=== PATIENT | female | born 1960 | race Hispanic/Latino ===

== ENCOUNTER 2017-04-16 15:22 | Emergency (ER) | payer SELFPAY ==
[2017-04-16 15:31] VITALS: BP 140/93
[2017-04-16] MEDS ORDERED: NORCO 7.5/325 PO ONE (16:07)
[2017-04-16] MEDS ORDERED: MOTRIN PO ONE (16:07)
--- NOTE | 2017-04-16 16:08 | Emergency Department Report ---
Blank Doc - Documentation Documentation: Patient is a 56 year old female who fell in the bathroom approximately 2 weeks ago injuring her right ribs. Patient states pain is persisted hurts when she breathes. Patient is here for evaluation. X-ray will be done
--- NOTE | 2017-04-16 16:53 | XRay Report ---
FINAL REPORT PROCEDURE: XR RIBS UNI W PA CHEST 3+V RT TECHNIQUE: RIGHT rib radiographs, 3 views of the ribs, including PA chest. HISTORY: Rib injury. COMPARISON: No prior studies are available for comparison. FINDINGS: Heart: Normal. Mediastinum/Vessels: Aortic tortuosity. Lungs: Normal. Pleural space: Normal. Pneumothorax: None. Bony thorax/ribs: There is a minimally displaced anterior right 7th rib fracture. IMPRESSION: Minimally displaced right 7th rib fracture. No pneumothorax on limited exam. Aortic tortuosity.
--- NOTE | 2017-04-16 17:07 | Emergency Department Report ---
HPI - General Chief Complaint: Pain General Time Seen by Provider: 04/16/17 15:48 ED Past Medical Hx - Past Medical History Previous Medical History?: No - Surgical History Past Surgical History?: No - Social History Smoking Status: Current Every Day Smoker Substance Use Type: Alcohol - Medications Home Medications: Home Medications Medication Instructions Recorded Confirmed Last Taken Type HYDROcodone/APAP 5-325 [Mountain 1 each PO Q6HR PRN #12 tablet 04/16/17 Unknown Rx 5/325] Ibuprofen [Motrin] 800 mg PO Q8HR PRN #30 tablet 04/16/17 Unknown Rx ED Review of Systems ROS: Stated complaint: "Broken ribs" Other details as noted in HPI Physical Exam - Physical Exam Vital Signs: Vital Signs 04/16/17 04/16/17 04/16/17 15:29 16:26 16:27 Temperature 98.1 F Pulse Rate 109 H Respiratory 16 18 18 Rate Blood Pressure 140/93 O2 Sat by Pulse 100 Oximetry ED Course Vital Signs 04/16/17 04/16/17 04/16/17 15:29 16:26 16:27 Temperature 98.1 F Pulse Rate 109 H Respiratory 16 18 18 Rate Blood Pressure 140/93 O2 Sat by Pulse 100 Oximetry ED Medical Decision Making - Radiology Data Radiology results: report reviewed, image reviewed INAL REPORT PROCEDURE: XR RIBS UNI W PA CHEST 3+V RT TECHNIQUE: RIGHT rib radiographs, 3 views of the ribs, including PA chest. HISTORY: Rib injury. COMPARISON: No prior studies are available for comparison. FINDINGS: Heart: Normal. Mediastinum/Vessels: Aortic tortuosity. Lungs: Normal. Pleural space: Normal. Pneumothorax: None. Bony thorax/ribs: There is a minimally displaced anterior right 7th rib fracture. IMPRESSION: Minimally displaced right 7th rib fracture. No pneumothorax on limited exam. Aortic tortuosity. Transcribed By: CASEY Dictated By: KEN DIALLO MD Electronically Authenticated By: KEN DIALLO MD Signed Date/Time: 04/16/17 3522 Critical care attestation.: If time is entered above; I have spent that time in minutes in the direct care of this critically ill patient, excluding procedure time. ED Disposition Clinical Impression: Right rib fracture Qualifiers: Encounter type: initial encounter Rib fracture type: single rib Fracture type: closed Qualified Code(s): S22.31XA - Fracture of one rib, right side, initial encounter for closed fracture Disposition: DC- TO HOME OR SELFCARE Is pt being admited?: No Does the pt Need Aspirin: No Condition: Stable Instructions: Rib Fracture (ED) Additional Instructions: Make sure to follow up with the orthopedics as well as her primary care physician as discussed. Take all your medications as you've been prescribed. If you have any worsening symptoms or develop new symptoms please return to ED immediately. Prescriptions: HYDROcodone/APAP 5-325 [Mountain 5/325] 1 each PO Q6HR PRN #12 tablet PRN Reason: Pain Ibuprofen [Motrin] 800 mg PO Q8HR PRN #30 tablet PRN Reason: Pain Referrals: PRIMARY CARE, [Primary Care Provider] - 3-5 Days LOKI ADAIR MD [Staff Physician] - 3-5 Days [facility] [Outside] - 3-5 Days [facility] [Outside] - 3-5 Days Forms: Accompanied Note, Work/School Release Form(ED) Time of Disposition: 17:15
== END 2017-04-16 17:49 | disposition home or self-care (01) ==
LOC: ED 15:22
DX: S22.31XA Fracture of one rib, right side, initial encounter for closed fracture (principal); F17.200 Nicotine dependence, unspecified, uncomplicated; W19.XXXA Unspecified fall, initial encounter; Y93.89 Activity, other specified; Y99.8 Other external cause status; Y92.89 Other specified places as the place of occurrence of the external cause

== ENCOUNTER 2018-04-09 15:10 | Emergency (ER) | payer SELFPAY ==
[2018-04-09] MEDS ORDERED: DECADRON IM ONE (15:26)
[2018-04-09] MEDS ORDERED: PROVENTIL IH ONE (15:26)
[2018-04-09] MEDS ORDERED: ATROVENT IH ONE (15:26)
--- NOTE | 2018-04-09 15:26 | Emergency Department Report ---
Blank Doc - Documentation Documentation: This is a 57-year-old female that presents with cough with SOB x3 days. Denies any chest pain. Denies any other complaints or symptoms. This initial assessment diagnostic orders/clinical plan/treatment(s) is/are subject to change based on patient's health status, clinical progression and re- assessment by fellow clinical providers in the ED. Further treatment and workup at subsequent clinical providers discretion. Patient/guardians urged not to elope from ED s their condition may be serious if not clinically assessed and managed. Initial orders include: 1-Patient sent to [facility] for further evaluation and treatment 2- Breathing treatment with decadron ordered 3- xray of chest
--- NOTE | 2018-04-09 16:02 | XRay Report ---
FINAL REPORT EXAM: XR CHEST ROUTINE 2V HISTORY: wheezing, sob TECHNIQUE: Frontal and lateral chest radiographs. PRIORS: 04/16/2017. FINDINGS: The cardiomediastinal silhouette is normal. No focal consolidation. Unchanged hyperinflated lungs. No pleural effusion. No pneumothorax. No acute osseous abnormality. IMPRESSION: No acute cardiopulmonary process. Unchanged hyperinflated lungs which can be seen in COPD.
--- NOTE | 2018-04-09 17:15 | Emergency Department Report ---
Minor Respiratory - HPI Chief Complaint: Dyspnea/Respdistress Stated Complaint: SHANTA Time Seen by Provider: 04/09/18 15:23 Duration: 5 Days Pain Location: Chest Severity: moderate Minor Respiratory: Yes Able to Tolerate Fluids, Yes Cough, Yes Shortness of Breath, No Rhinorrhea, No Sore Throat, No Ear Pain, No Sick Contacts, No Hemoptysis, No Chest Pain, No Fever Other History: 57 yo cauc. female with cough and congestion for days. she is a smoker. likely has undx copd. chills and yellow sputum. no fever. ambulatory in er. no cp. sob with activity. no leg swelling. ED Review of Systems ROS: Stated complaint: SHANTA Other details as noted in HPI Comment: All other systems reviewed and negative Constitutional: denies: chills, fever, malaise Eyes: denies: eye pain ENT: denies: ear pain, throat pain Respiratory: see HPI, cough, shortness of breath, wheezing. denies: orthopnea, SOB with exertion Cardiovascular: as per HPI, dyspnea on exertion. denies: chest pain, palpitations, orthopnea Endocrine: denies: excessive sweating, flushing, intolerance to cold Gastrointestinal: denies: nausea Genitourinary: denies: urgency Musculoskeletal: denies: back pain Skin: denies: rash Neurological: denies: headache Psychiatric: denies: anxiety Hematological/Lymphatic: denies: easy bleeding ED Past Medical Hx - Past Medical History Previous Medical History?: Yes Hx Psychiatric Treatment: Yes (anx/depression) - Surgical History Past Surgical History?: No - Social History Smoking Status: Current Every Day Smoker Substance Use Type: Alcohol - Medications Home Medications: Home Medications Medication Instructions Recorded Confirmed Last Taken Type Albuterol Sulfate [Ventolin HFA] 2 puff IH Q4H PRN #1 hfa.aer.ad 04/09/18 Unknown Rx Azithromycin [Zithromax Z-REGINE] 250 mg PO DAILY #6 tablet 04/09/18 Unknown Rx Benzonatate [Tessalon Perles] 100 mg PO Q8HR PRN #20 capsule 04/09/18 Unknown Rx Fluticasone [Flonase] 1 spray NS QDAY #1 bottle 04/09/18 Unknown Rx predniSONE [Deltasone] 20 mg PO DAILY #5 tablet 04/09/18 Unknown Rx Minor Respiratory Exam - Exam General: Vital signs noted. No distress. Alert and acting appropriately. HEENT: Yes Moist Mucous Membranes, No Pharyngeal Erythema, No Pharyngeal Exudates, No Rhinorrhea, No Conjuctival Injection, No Frontal Tenderness, No Maxillary Tenderness Ear: Neither TM Bulge, Neither TM Erythema, Neither EAC Pain, Neither EAC D ischarge Neck: Yes Supple, No Adenopathy Lungs: Yes Good Air Exchange, Yes Wheezes (b- improved with duoneb), Yes Cough, No Ronchi, No Stridor, No Labored Respirations, No Retractions, No Use of Accessory Muscles, No Other Abnormal Lung Sounds Heart: Yes Regular, No Murmur Abdomen: Yes Normal Bowel Sounds, No Tenderness, No Peritoneal Signs Skin: No Rash, No Edema Neurologic: Alert and oriented, no deficits. Musculoskeletal: Unremarkable. ED Course Vital Signs 04/09/18 15:24 Temperature 97.8 F Pulse Rate 112 H Respiratory 20 Rate Blood Pressure 166/91 O2 Sat by Pulse 93 Oximetry ED Medical Decision Making - Radiology Data Radiology results: report reviewed, image reviewed no pna - Medical Decision Making likely undx copd current smoker cough chills yellow sputum duoneb and decadron per triage ASHUTOSH discussed smoking and copd with pt. she will be dc home with pulmonary follow up. - Differential Diagnosis ro pna Critical care attestation.: If time is entered above; I have spent that time in minutes in the direct care of this critically ill patient, excluding procedure time. ED Disposition Clinical Impression: Bronchitis, URTI (acute upper respiratory infection) Disposition: DC-01 TO HOME OR SELFCARE Is pt being admited?: No Does the pt Need Aspirin: No Condition: Stable Instructions: Acute Bronchitis (ED), Chronic Obstructive Pulmonary Disease (ED) Additional Instructions: stop smoking meds as ordered follow up with a mental health worker to get COPD tests and ongoing lung care hydrate well with water activity as tolerated diet as tolerated Prescriptions: Albuterol Sulfate [Ventolin HFA] 2 puff IH Q4H PRN #1 hfa.aer.ad PRN Reason: Shortness Of Breath Azithromycin [Zithromax Z-REGINE] 250 mg PO DAILY #6 tablet Benzonatate [Tessalon Perles] 100 mg PO Q8HR PRN #20 capsule PRN Reason: Cough Fluticasone [Flonase] 1 spray NS QDAY #1 bottle predniSONE [Deltasone] 20 mg PO DAILY #5 tablet Referrals: MOIRA LEE MD [Staff Physician] - 3-5 Days ABY SEVILLA MD [Staff Physician] - 3-5 Days NATASHA ABREU MD [Referring] - 3-5 Days MARQUEZ PENA MD [Staff Physician] - 3-5 Days Time of Disposition: 17:14
[2018-04-09 18:34] VITALS: BP 151/76
== END 2018-04-09 17:51 | disposition home or self-care (01) ==
LOC: ED 15:10
DX: J06.9 Acute upper respiratory infection, unspecified (principal); J40 Bronchitis, not specified as acute or chronic; F32.9 Major depressive disorder, single episode, unspecified; F41.9 Anxiety disorder, unspecified; F17.200 Nicotine dependence, unspecified, uncomplicated
CPT/HCPCS: 71046; 94640; 96372; 99283; J1100

== ENCOUNTER 2021-04-14 22:45 | Emergency (ER) | payer SELFPAY ==
--- NOTE | 2021-04-14 23:15 | Emergency Department Report ---
History of Present Illness - General Chief Complaint: Overdose Stated Complaint: DRUG OD Time Seen by Provider: 04/14/21 23:08 Source: patient Mode of arrival: Stretcher Limitations: No Limitations - History of Present Illness Initial Comments: Patient is 60 years old female with history of COPD. Patient brought to the emergency room via EMS from home for evaluation of possible overdose. EMS reported that patient found to be unresponsive by her significant other. EMS stated that patient was breathing like 6 times a minute. Patient received Narcan intranasally with no improvement however she wake up with a Narcan IV line. Upon arrival to the ER patient is alert, oriented x3 in no acute distress. Patient stated that she was drinking alcohol and her friend gave her a blue bill which turned to be an oxycodone. Patient stated that she took it just escape for a little bit but she did not want to kill herself. She stated that her sister last and she is depressed. Again she denied suicidal ideation. No homicidal ideation. Patient also denied any visual or auditory hallucination. Complaint: accidental overdose -: Sudden, This evening Intent: want to escape How Overdose Was Discovered: family/friend present Context: Intentional Overdose: recent loss Context: Accidental Overdose: was drinking then took pi Associated Symptoms: depression Treatments Prior to Arrival: narcan - Related Data Previous Rx's Medication Instructions Recorded Last Taken Type Albuterol Sulfate [Ventolin HFA] 2 puff IH Q4H PRN #1 hfa.aer.ad 04/09/18 Unknown Rx Azithromycin [Zithromax Z-REGINE] 250 mg PO DAILY #6 tablet 04/09/18 Unknown Rx Benzonatate [Tessalon Perles] 100 mg PO Q8HR PRN #20 capsule 04/09/18 Unknown Rx Fluticasone [Flonase] 1 spray NS QDAY #1 bottle 04/09/18 Unknown Rx predniSONE [Deltasone] 20 mg PO DAILY #5 tablet 04/09/18 Unknown Rx Allergies Allergy/AdvReac Type Severity Reaction Status Date / Time No Known Allergies Allergy Unverified 04/16/17 15:31 ED Review of Systems ROS: Stated complaint: DRUG OD Other details as noted in HPI Comment: All other systems reviewed and negative Constitutional: denies: chills, fever Respiratory: denies: cough, shortness of breath, SOB with exertion Cardiovascular: denies: chest pain, palpitations Gastrointestinal: denies: abdominal pain, nausea, vomiting, diarrhea, constipation, hematemesis, melena Musculoskeletal: denies: back pain Neurological: denies: headache, weakness, numbness, paresthesias, confusion Psychiatric: depression. denies: auditory hallucinations, visual hallucinations, homicidal thoughts, suicidal thoughts ED Past Medical Hx - Past Medical History Previous Medical History?: Yes Hx Psychiatric Treatment: Yes (anx/depression) Hx COPD: Yes Additional medical history: Chronic Left Hip pain. - Surgical History Past Surgical History?: No - Social History Smoking Status: Current Every Day Smoker Substance Use Type: Alcohol - Medications Home Medications: Home Medications Medication Instructions Recorded Confirmed Last Taken Type Albuterol Sulfate [Ventolin HFA] 2 puff IH Q4H PRN #1 hfa.aer.ad 04/09/18 Unknown Rx Azithromycin [Zithromax Z-REGINE] 250 mg PO DAILY #6 tablet 04/09/18 Unknown Rx Benzonatate [Tessalon Perles] 100 mg PO Q8HR PRN #20 capsule 04/09/18 Unknown Rx Fluticasone [Flonase] 1 spray NS QDAY #1 bottle 04/09/18 Unknown Rx predniSONE [Deltasone] 20 mg PO DAILY #5 tablet 04/09/18 Unknown Rx ED Physical Exam - General Limitations: No Limitations General appearance: alert, in no apparent distress - Head Head exam: Present: atraumatic, normocephalic, normal inspection - Eye Eye exam: Present: normal appearance - ENT ENT exam: Present: normal exam, normal orophraynx, mucous membranes moist - Neck Neck exam: Present: normal inspection, full ROM. Absent: tenderness, meningismus - Respiratory Respiratory exam: Present: normal lung sounds bilaterally - Cardiovascular Cardiovascular Exam: Present: regular rate, normal rhythm, normal heart sounds - GI/Abdominal GI/Abdominal exam: Present: soft, normal bowel sounds. Absent: distended, tenderness, guarding, rebound, rigid, organomegaly, mass, bruit, pulsatile mass, hernia - Extremities Exam Extremities exam: Present: normal inspection, full ROM, normal capillary refill. Absent: tenderness - Back Exam Back exam: Present: normal inspection, full ROM. Absent: CVA tenderness (R), CVA tenderness (L) - Neurological Exam Neurological exam: Present: alert, oriented X3, CN II-XII intact, reflexes normal. Absent: motor sensory deficit - Psychiatric Psychiatric exam: Present: depressed. Absent: homicidal ideation, suicidal ideation - Skin Skin exam: Present: warm, intact, normal color ED Course Vital Signs 04/14/21 04/14/21 22:49 23:44 Temperature 98 F Pulse Rate 87 89 Respiratory 18 16 Rate Blood Pressure 115/70 Blood Pressure 127/56 [Left] O2 Sat by Pulse 99 91 Oximetry ED Medical Decision Making - Lab Data Result diagrams: 04/14/21 23:19 04/14/21 23:19 - EKG Data -: EKG Interpreted by Me EKG shows normal: sinus rhythm Rate: normal - EKG Data Interpretation: no acute changes - Medical Decision Making Patient is 60 years old female with history of COPD. Patient brought to the emergency room via EMS from home for evaluation of possible overdose. EMS rep orted that patient found to be unresponsive by her significant other. EMS stated that patient was breathing like 6 times a minute. Patient received Narcan intranasally with no improvement however she wake up with a Narcan IV line. Upon arrival to the ER patient is alert, oriented x3 in no acute d istress. Patient stated that she was drinking alcohol and her friend gave her a blue bill which turned to be an oxycodone. Patient stated that she took it just escape for a little bit but she did not want to kill herself. She stated that her sister last and she is depressed. Again she denied suicidal ideation. No homicidal ideation. Patient also denied any visual or auditory hallucination. Patient observed in the ER for more than 2 hours now. Patient remained alert, oriented x3 in no acute distress. Labs reviewed and is unremarkable except for alcohol level of 0.1. Patient stated that she wanted to leave AGAINST MEDICAL ADVICE. I informed the patient that the reason that she is alert and oriented night because of the Narcan that she received and this medicine usually last for 2 hours and she might be going back to unresponsive and unable to breathe and this is can lead to . Patient stated that she does not want to stay. Patient son at bedside listening to this conversation and he stated that he will sign up for her. I informed him to return to the ER or go to another ER if patient symptoms change. Critical care attestation.: If time is entered above; I have spent that time in minutes in the direct care of this critically ill patient, excluding procedure time. ED Disposition Clinical Impression: Alcohol intoxication, Drug overdose Disposition: 07 LEFT AGAINST MEDICAL ADVICE Is pt being admited?: No Condition: Stable Instructions: Accidental Drug Poisoning, Adult, Alcohol Intoxication Referrals: PRIMARY CARE, [Referring] - 3-5 Days
[2021-04-14 23:35] LABS: Basophils # (Auto) 0.1 K/mm3 (0.0-0.1); Basophils % (Auto) 1.2 % (0.0-1.8); Eosinophils % (Auto) 0.6 % (0.0-4.3); Hematocrit 46.4 % (30.3-42.9); Hemoglobin 15.3 gm/dl (10.1-14.3); Lymphocytes % (Auto) 14.8 % (13.4-35.0); Mean Corpuscular HGB Conc 33 % (30-34); Mean Corpuscular Volume 100 fl (79-97); Monocytes # (Auto) 0.4 K/mm3 (0.0-0.8); Platelet Count 241 K/mm3 (140-440); Red Blood Count 4.62 M/mm3 (3.65-5.03); Red Cell Distribution Width 13.6 % (13.2-15.2)
[2021-04-14 23:54] LABS: BUN/Creatinine Ratio 6; Blood Urea Nitrogen 5 mg/dL (7-17); Calcium 8.9 mg/dL (8.4-10.2); Hemolysis Index 7
[2021-04-14 23:56] LABS: Alanine Aminotransferase 75 units/L (7-56); Albumin 4.1 g/dL (3.9-5)
[2021-04-15] LABS: Bilirubin,Direct < 0.2 mg/dL (0-0.2)
[2021-04-15 00:29] LABS: Bacteria,Urine 4+ /HPF (Negative); Bilirubin,Urine NEG (Negative); Blood,Urine SM (Negative); Color,Urine Yellow (Yellow); Hyaline Casts,Urine 4 /LPF; Protein,Urine <15 mg/dL mg/dL (Negative); Urobilinogen,Urine < 2.0 mg/dL (<2.0)
[2021-04-15 00:35] LABS: Amphetamine Screen,Urine PRESUMPTIVE NEGATIVE; Benzodiazepines Screen,Urine PRESUMPTIVE NEGATIVE; Cannabinoid Screen,Urine PRESUMPTIVE NEGATIVE; Cocaine Screen,Urine PRESUMPTIVE NEGATIVE; Methadone Screen,Urine PRESUMPTIVE NEGATIVE; Opiate Screen,Urine PRESUMPTIVE NEGATIVE
[2021-04-15 01:28] VITALS: BP 130/86
--- NOTE | 2021-04-15 09:40 | Electrocardiograph Report ---
[facility] Test Date: 2021-04-14 Test Time: 23:03:44 Pat Name: PAULINA RENAE Department: Room: Gender: F Boss Miner: ED JUAN : 1960 Requested By: FAUSTO ALMANZA Order Number: [id number] Reading MD: Kendy Self Measurements Intervals [place] Rate: 86 P: 70 RI: 157 QRS: -15 QRSD: 89 T: 31 QT: 395 QTc: 473 Interpretive Statements Sinus rhythm No previous ECG available for comparison Electronically Signed On 04-15-2021 9:39:59 EST by Kendy Self
== END 2021-04-15 01:27 | disposition left against medical advice (07) ==
LOC: ED 22:45
DX: T40.2X1A Poisoning by other opioids, accidental (unintentional), initial encounter (principal); F10.129 Alcohol abuse with intoxication, unspecified; J44.9 Chronic obstructive pulmonary disease, unspecified; Z98.890 Other specified postprocedural states; F17.200 Nicotine dependence, unspecified, uncomplicated; Y92.89 Other specified places as the place of occurrence of the external cause
CPT/HCPCS: 36415; 80048; 80076; 80307; 80320; 81001; 85025; 87076; 87086; 87186; 93005; 93010; 99284; G0480